=== PATIENT | male | born 1990 | race American Indian/Alaskan Native ===

== ENCOUNTER 2017-12-13 13:24 | Inpatient (IN) | payer OTHER ==
[2017-12-13] MEDS ORDERED: ZOFRAN ODT PO ONE (14:55)
--- NOTE | 2017-12-13 14:58 | Emergency Department Report ---
ED Abdominal Pain HPI - General Chief Complaint: Abdominal Pain Stated Complaint: ABDOMINAL PAIN Time Seen by Provider: 12/13/17 14:51 Source: patient Mode of arrival: Ambulatory Limitations: No Limitations - History of Present Illness Initial Comments: 27-year-old -[place] male comes into ED for complaint of upper abdominal pain that is severe and nausea without vomiting. Patient reports that his pain is greater than 10. Patient admits to nausea no vomiting no diarrhea has not had a bowel movement in 2 days and denies shortness of breathing. He also denies fever no chills. He does admit to taking Tylenol PM ibuprofen 1600 mg every 6 hours 2 he reports taking Xanax that did not help with this pain or sleep. Patient does admit to smoking. He reports he works at night. She has no past medical history currently takes no medications on a daily basis and has no known drug allergies. MD Complaint: abdominal pain -: days(s) (5), This morning (gotten severe.) Location: periumbilical Radiation: none Migration to: no migration Severity: severe Severity scale (0 -10): 10 Quality: sharp Consistency: constant Improves With: nothing Worsens With: nothing Associated Symptoms: nausea, constipation. denies: vomiting, diarrhea, chills, dysuria, melena, hematuria Treatments Prior to Arrival: NSAIDs, other (Tylenol, Xanax) - Related Data Previous Rx's Medication Instructions Recorded Last Taken Type Amoxicillin/Potassium Clav 1 each PO BID #12 tablet 12/17/17 Unknown Rx [Augmentin 500-125 Tablet] Nicotine [Habitrol] 21 mg TD QDAY #30 patch 12/17/17 Unknown Rx Pantoprazole [Protonix TAB] 40 mg PO QDAY #30 tablet 12/17/17 Unknown Rx traMADol [Ultram 50 MG tab] 25 mg PO Q4H PRN #20 tablet 12/17/17 Unknown Rx Allergies Allergy/AdvReac Type Severity Reaction Status Date / Time No Known Allergies Allergy Unverified 12/13/17 13:33 ED Review of Systems ROS: Stated complaint: ABDOMINAL PAIN Other details as noted in HPI ED Past Medical Hx - Past Medical History Previous Medical History?: No - Surgical History Past Surgical History?: No - Social History Smoking Status: Current Every Day Smoker Substance Use Type: Alcohol, Marijuana, Other (benzodiazepine ) - Medications Home Medications: Home Medications Medication Instructions Recorded Confirmed Last Taken Type Amoxicillin/Potassium Clav 1 each PO BID #12 tablet 12/17/17 Unknown Rx [Augmentin 500-125 Tablet] Nicotine [Habitrol] 21 mg TD QDAY #30 patch 12/17/17 Unknown Rx Pantoprazole [Protonix TAB] 40 mg PO QDAY #30 tablet 12/17/17 Unknown Rx traMADol [Ultram 50 MG tab] 25 mg PO Q4H PRN #20 tablet 12/17/17 Unknown Rx ED Physical Exam - General Limitations: No Limitations, Other (nontoxic sitting comfortably) General appearance: alert, in no apparent distress - Head Head exam: Present: atraumatic, normocephalic - Eye Eye exam: Present: normal appearance - ENT ENT exam: Present: mucous membranes moist - Neck Neck exam: Present: normal inspection - Respiratory Respiratory exam: Present: normal lung sounds bilaterally. Absent: respiratory distress - Cardiovascular Cardiovascular Exam: Present: regular rate, normal rhythm. Absent: systolic murmur, diastolic murmur, rubs, gallop - GI/Abdominal GI/Abdominal exam: Present: soft, tenderness (mild tenderness to theUmbilicus area). Absent: distended - Extremities Exam Extremities exam: Present: normal inspection - Back Exam Back exam: Present: normal inspection - Neurological Exam Neurological exam: Present: alert, oriented X3 - Psychiatric Psychiatric exam: Present: normal affect, normal mood ED Course Vital Signs 12/13/17 12/13/17 12/13/17 13:30 15:40 21:45 Temperature 98.6 F 98.3 F Pulse Rate 68 72 81 Respiratory 18 18 18 Rate Blood Pressure 123/74 129/72 130/90 O2 Sat by Pulse 99 99 100 Oximetry 12/13/17 12/13/17 12/13/17 21:50 21:55 22:00 Temperature Pulse Rate 72 65 69 Respiratory 12 12 12 Rate Blood Pressure 134/83 138/90 142/86 O2 Sat by Pulse 100 100 100 Oximetry 12/13/17 12/13/17 12/13/17 22:15 22:20 22:30 Temperature 98.5 F Pulse Rate 63 64 Respiratory 12 12 12 Rate Blood Pressure 135/80 135/80 O2 Sat by Pulse 100 99 Oximetry 12/13/17 12/13/17 12/14/17 22:35 22:57 00:09 Temperature 98.0 F 98.6 F Pulse Rate 78 80 Respiratory 12 20 20 Rate Blood Pressure 132/79 121/70 O2 Sat by Pulse 100 100 Oximetry ED Medical Decision Making - Lab Data Result diagrams: 12/16/17 07:26 12/16/17 07:26 - Medical Decision Making Patient's been evaluated by this provider in fast track. I discussed case with Dr. Leonardo will order a CBC CMP acetaminophen level and lipase CT scan urinalysis urine tox screen. It was noted on CT scan patient has free air versus fluid discussed with Dr. Moeller surgeon at approximately 1654 reports it is coming in to evaluate the patient. Dr. Leonardo is also evaluated the patient as well. Critical care attestation.: If time is entered above; I have spent that time in minutes in the direct care of this critically ill patient, excluding procedure time. ED Disposition Clinical Impression: Duodenal ulcer perforation, Acute abdominal pain Disposition: DC- OP ADMIT IP TO THIS HOSP Is pt being admited?: Yes Does the pt Need Aspirin: No Condition: Stable
[2017-12-13 15:21] LABS: Amphetamine Screen,Urine PRESUMPTIVE NEGATIVE; Benzodiazepines Screen,Urine PRESUMPTIVE NEGATIVE; Cocaine Screen,Urine PRESUMPTIVE NEGATIVE; Methadone Screen,Urine PRESUMPTIVE NEGATIVE; Opiate Screen,Urine PRESUMPTIVE NEGATIVE
[2017-12-13 15:24] LABS: Amorphous Crystals,Urine Few; Bacteria,Urine 1+ /HPF (Negative); Bilirubin,Urine NEG (Negative); Blood,Urine NEG (Negative); Color,Urine Yellow (Yellow); Mucus,Urine 1+ /HPF; Urobilinogen,Urine < 2.0 mg/dL (<2.0)
[2017-12-13 15:28] LABS: Basophils % (Auto) 0.2 % (0.0-1.8); Eosinophils % (Auto) 0.4 % (0.0-4.3); Hematocrit 46.6 % (35.5-45.6); Hemoglobin 15.8 gm/dl (11.8-15.2); Lymphocytes # (Auto) 0.6 K/mm3 (1.2-5.4); Lymphocytes % (Auto) 4.9 % (13.4-35.0); Mean Corpuscular HGB Conc 34 % (32-34); Mean Corpuscular Hemoglobin 31 pg (28-32); Mean Corpuscular Volume 90 fl (84-94); Monocytes # (Auto) 0.6 K/mm3 (0.0-0.8); Monocytes % (Auto) 5.7 % (0.0-7.3); Platelet Count 201 K/mm3 (140-440); Red Blood Count 5.18 M/mm3 (3.65-5.03); Red Cell Distribution Width 14.4 % (13.2-15.2)
[2017-12-13 15:39] LABS: Cannabinoid Screen,Urine PRESUMPTIVE POSITIVE
[2017-12-13 15:43] LABS: Alanine Aminotransferase 13 units/L (7-56); Albumin 4.6 g/dL (3.9-5); BUN/Creatinine Ratio 23; Blood Urea Nitrogen 18 mg/dL (9-20); Calcium 9.4 mg/dL (8.4-10.2); Hemolysis Index 9
[2017-12-13] MEDS ORDERED: ULTRAM ONE (15:47)
[2017-12-13] MEDS ORDERED: ULTRAM PO ONE (15:50)
[2017-12-13] MEDS ORDERED: NACL 0.9% 1000 ML 1,000 ML IV ONE ×2 (16:04→18:08)
--- NOTE | 2017-12-13 16:51 | Cat Scan Report ---
FINAL REPORT EXAM: CT ABDOMEN PELVIS WO CON HISTORY: NV epigastric pain TECHNIQUE: Standard unenhanced CT of the abdomen and pelvis. Coronal and sagittal reconstruction was also performed. PRIORS: None. FINDINGS: There are small bubbles of free air beneath the anterior abdominal wall throughout the abdomen and pelvis and along the margin of the liver. There is also low-density free fluid along the inferior margin of the liver, beneath the abdominal wall, and in the dependent pelvis. No definite site of inflammation is seen. No loculated fluid collection is present. Etiology of the free air is uncertain but perforated viscus is most likely, including perforated ulcer. Otherwise, within the abdomen, the liver, spleen, pancreas, gallbladder, adrenal glands, and kidneys are unremarkable. No evidence for retroperitoneal or pelvic lymphadenopathy is seen. The bowel loops have normal caliber. The appendix is normal. Within the pelvis, the bladder is unremarkable. The prostate is normal. No evidence for mass or lymphadenopathy is seen in the pelvis. Images through the upper abdomen include the lung bases which are expanded and clear. Bony structures show no focal abnormalities and are intact. IMPRESSION: 1. Pneumoperitoneum identified with areas of low-density free fluid scattered throughout the abdomen and pelvis. Findings suggest perforated viscus possibly a perforated ulcer.
[2017-12-13] MEDS ORDERED: ZOFRAN IV ONE (16:53)
[2017-12-13] MEDS ORDERED: DILAUDID IV ONE (16:53)
--- NOTE | 2017-12-13 16:55 | Emergency Department Report ---
Blank Doc - Documentation Documentation: Patient is a 27-year-old Tristanian male who is being evaluated for nausea vomiting epigastric pain. Patient on brief physical exam by me does have an acute abdomen is has guarding present. Patient was seen by my JOYCE. I agree with all documentation on the full H&P. Patient on CT does show evidence of probable perforated gastric ulcer. Atacand R with general surgery has been consult. We are pending his arrival to evaluate the patient for further management and 1654
[2017-12-13] MEDS ORDERED: ZOSYN/NS 4.5GM/100ML 4.5 GM/100 ML VIAL IV SCH (17:00)
--- NOTE | 2017-12-13 18:42 | Consultation ---
History of Present Illness Consult date: 12/13/17 Reason for consult: abdominal pain Requesting physician: ANTONINO FUENTES Chief complaint: abdominal pain - History of present illness History of present illness: 27-year-old otherwise healthy male presents with acute worsening of abdominal pain by 2 days. He reports that 4 days ago he began to have some abdominal discomfort. It acutely worsened yesterday morning for which he took 1600 mg of ibuprofen. The pain completely went away. Unfortunately, the pain returned today and he took another 1600 mg of ibuprofen. However, this time, the pain became even worse. That prompted him to come to the emergency room tonight. He reports nausea but no vomiting. He's been having sweats. His whole abdomen is very tender. The worst part is in the upper portion. He has never had anything like this before. Past History Past Medical History: No medical history Past Surgical History: No surgical history Social history: no significant social history, smoking (marijuana). denies: alcohol abuse, prescription drug abuse, IV drug use Family history: no significant family history Medications and Allergies Allergies Allergy/AdvReac Type Severity Reaction Status Date / Time No Known Allergies Allergy Unverified 12/13/17 13:33 Active Meds: Active Medications Piperacillin Sod/Tazobactam Sod (Zosyn/Ns 4.5gm/100ml) 4.5 gm in 100 mls @ 200 mls/hr IV ONCE GUERITA Sodium Chloride (Nacl 0.9% 1000 Ml) 1,000 mls @ 999 mls/hr IV BOLUS ONE Stop: 12/13/17 19:08 Review of Systems - Constitutional sweats, no fever - Cardiovascular chest pain (lower chest), no palpitations - Respiratory shortness of breath, no cough - Gastrointestinal abdominal pain (very severe in the upper aspect.), nausea, no vomiting, no diarrhea, no constipation, no hematemesis, no BRBPR, no melena, no hematochezia - Muskuloskeletal no low back pain - Integumentary no rash Exam Vital Signs Temp Pulse Resp BP Pulse Ox 98.6 F 68 18 123/74 99 12/13/17 13:30 12/13/17 13:30 12/13/17 13:30 12/13/17 13:30 12/13/17 13:30 - General physical appearance Positive: well developed, well nourished, moderate pain - Eyes Positive: normal occular movement - Respiratory Positive: normal expansion, normal respiratory effort, clear to auscultation - Cardiovascular Rhythm: regular - Extremities Extremities: No edema, normal temperature, normal color - Abdomen Abdomen: Present: tender (especially in epigastric area), bowel sounds hypoactive (none), guarding (involuntary), rigid. Absent: distended, masses, surgical scars - Integumentary no rash, no growths, no abnormal pigmentation - Neurologic Neurologic: alert and oriented to time, place and person, motor strength and sensation are grossly intact - Psychiatric Psychiatric: appropriate mood/affect, intact judgment & insight, cooperative Results - Labs 12/13/17 15:14 12/13/17 15:14 Abnormal lab results 12/13/17 12/13/17 12/13/17 Range/Units 15:14 15:14 15:14 WBC 11.2 H (4.5-11.0) K/mm3 RBC 5.18 H (3.65-5.03) M/mm3 Hgb 15.8 H (11.8-15.2) gm/dl Hct 46.6 H (35.5-45.6) % Lymph % (Auto) 4.9 L (13.4-35.0) % Lymph # 0.6 L (1.2-5.4) K/mm3 Seg Neutrophils % 88.8 H (40.0-70.0) % Seg Neutrophils # 9.9 H (1.8-7.7) K/mm3 Lipase 65 H (13-60) units/L Acetaminophen < 5.0 L (10.0-30.0) ug/mL Diabetes panel 12/13/17 Range/Units 15:14 Sodium 137 (137-145) mmol/L Potassium 4.1 (3.6-5.0) mmol/L Chloride 98.6 (98-107) mmol/L Carbon Dioxide 28 (22-30) mmol/L BUN 18 (9-20) mg/dL Creatinine 0.8 (0.8-1.5) mg/dL Glucose 99 (75-100) mg/dL Calcium 9.4 (8.4-10.2) mg/dL AST 20 (5-40) units/L ALT 13 (7-56) units/L Alkaline Phosphatase 69 (35-129) units/L Total Protein 7.6 (6.3-8.2) g/dL Albumin 4.6 (3.9-5) g/dL Calcium panel 12/13/17 Range/Units 15:14 Calcium 9.4 (8.4-10.2) mg/dL Albumin 4.6 (3.9-5) g/dL Pituitary panel 12/13/17 Range/Units 15:14 Sodium 137 (137-145) mmol/L Potassium 4.1 (3.6-5.0) mmol/L Chloride 98.6 (98-107) mmol/L Carbon Dioxide 28 (22-30) mmol/L BUN 18 (9-20) mg/dL Creatinine 0.8 (0.8-1.5) mg/dL Glucose 99 (75-100) mg/dL Calcium 9.4 (8.4-10.2) mg/dL Adrenal panel 12/13/17 Range/Units 15:14 Sodium 137 (137-145) mmol/L Potassium 4.1 (3.6-5.0) mmol/L Chloride 98.6 (98-107) mmol/L Carbon Dioxide 28 (22-30) mmol/L BUN 18 (9-20) mg/dL Creatinine 0.8 (0.8-1.5) mg/dL Glucose 99 (75-100) mg/dL Calcium 9.4 (8.4-10.2) mg/dL Total Bilirubin 1.00 (0.1-1.2) mg/dL AST 20 (5-40) units/L ALT 13 (7-56) units/L Alkaline Phosphatase 69 (35-129) units/L Total Protein 7.6 (6.3-8.2) g/dL Albumin 4.6 (3.9-5) g/dL - Imaging CT scan - abdomen: report reviewed, image reviewed CT scan - pelvis: report reviewed, image reviewed Assessment and Plan - Patient Problems (1) Acute abdominal pain Current Visit: Yes Status: Acute Plan to address problem: Pt with an acute abdomen on exam. CT scan shows free fluid and free air. Pt in need of urgent exploration. Plan for diagnostic laparoscopy with possible ( exploratory laparotomy. Procedure, risks, benefits, alternatives were discussed. Alternatives included IV antibiotics and observation. I felt the risk was higher with this and I expressed that to him. All questions were answered. Patient consented to procedure. Proceed to operating room tonight. Time=45min (2) Dehydration Current Visit: Yes Status: Acute Plan to address problem: Pt appears dehydrated by clinical exam and labs. I have asked the emergency department to bolus and with an extra liter of fluid. We will continue the resuscitation postoperatively as his clinical parameters dictate.
[2017-12-13] MEDS ORDERED: SODIUM CHLORIDE FLUSH SYRINGE 10 ML IV PRN (19:36)
[2017-12-13] MEDS ORDERED: TYLENOL PO PRN (19:36)
[2017-12-13] MEDS ORDERED: ZOFRAN IV PRN ×2 (19:36→21:57)
--- NOTE | 2017-12-13 19:36 | History and Physical Report ---
History of Present Illness Date of examination: 12/13/17 Date of admission: 12/13/17 Chief complaint: See Dictated H/p in reports History of present illness: See Dictated H/p in reports Past History Past Medical History: No medical history Past Surgical History: No surgical history Social history: no significant social history, smoking (marijuana). denies: alcohol abuse, prescription drug abuse, IV drug use Family history: no significant family history Medications and Allergies Allergies Allergy/AdvReac Type Severity Reaction Status Date / Time No Known Allergies Allergy Unverified 12/13/17 13:33 Active Meds: Active Medications Piperacillin Sod/Tazobactam Sod (Zosyn/Ns 4.5gm/100ml) 4.5 gm in 100 mls @ 200 mls/hr IV ONCE GUERITA Exam - Constitutional Vitals: Temp Pulse Resp BP Pulse Ox 98.6 F 72 18 129/72 99 12/13/17 13:30 12/13/17 15:40 12/13/17 15:40 12/13/17 15:40 12/13/17 15:40 Results - Labs CBC & Chem 7: 12/14/17 05:33 12/14/17 07:01 Labs: Laboratory Last Values WBC 11.2 K/mm3 (4.5-11.0) H 12/13/17 15:14 RBC 5.18 M/mm3 (3.65-5.03) H 12/13/17 15:14 Hgb 15.8 gm/dl (11.8-15.2) H 12/13/17 15:14 Hct 46.6 % (35.5-45.6) H 12/13/17 15:14 MCV 90 fl (84-94) 12/13/17 15:14 MCH 31 pg (28-32) 12/13/17 15:14 MCHC 34 % (32-34) 12/13/17 15:14 RDW 14.4 % (13.2-15.2) 12/13/17 15:14 Plt Count 201 K/mm3 (140-440) 12/13/17 15:14 Lymph % (Auto) 4.9 % (13.4-35.0) L 12/13/17 15:14 Day % (Auto) 5.7 % (0.0-7.3) 12/13/17 15:14 Eos % (Auto) 0.4 % (0.0-4.3) 12/13/17 15:14 Baso % (Auto) 0.2 % (0.0-1.8) 12/13/17 15:14 Lymph # 0.6 K/mm3 (1.2-5.4) L 12/13/17 15:14 Day # 0.6 K/mm3 (0.0-0.8) 12/13/17 15:14 Eos # 0.0 K/mm3 (0.0-0.4) 12/13/17 15:14 Baso # 0.0 K/mm3 (0.0-0.1) 12/13/17 15:14 Seg Neutrophils % 88.8 % (40.0-70.0) H 12/13/17 15:14 Seg Neutrophils # 9.9 K/mm3 (1.8-7.7) H 12/13/17 15:14 Sodium 137 mmol/L (137-145) 12/13/17 15:14 Potassium 4.1 mmol/L (3.6-5.0) 12/13/17 15:14 Chloride 98.6 mmol/L (98-107) 12/13/17 15:14 Carbon Dioxide 28 mmol/L (22-30) 12/13/17 15:14 Anion Gap 15 mmol/L 12/13/17 15:14 BUN 18 mg/dL (9-20) 12/13/17 15:14 Creatinine 0.8 mg/dL (0.8-1.5) 12/13/17 15:14 Estimated GFR > 60 ml/min 12/13/17 15:14 BUN/Creatinine Ratio 23 % 12/13/17 15:14 Glucose 99 mg/dL (75-100) 12/13/17 15:14 Calcium 9.4 mg/dL (8.4-10.2) 12/13/17 15:14 Total Bilirubin 1.00 mg/dL (0.1-1.2) 12/13/17 15:14 AST 20 units/L (5-40) 12/13/17 15:14 ALT 13 units/L (7-56) 12/13/17 15:14 Alkaline Phosphatase 69 units/L (35-129) 12/13/17 15:14 Total Protein 7.6 g/dL (6.3-8.2) 12/13/17 15:14 Albumin 4.6 g/dL (3.9-5) 12/13/17 15:14 Albumin/Globulin Ratio 1.5 % 12/13/17 15:14 Lipase 65 units/L (13-60) H 12/13/17 15:14 Urine Color Yellow (Yellow) 12/13/17 15:04 Urine Turbidity Hazy (Clear) 12/13/17 15:04 Urine pH 5.0 (5.0-7.0) 12/13/17 15:04 Ur Specific Olla 1.029 (1.003-1.030) 12/13/17 15:04 Urine Protein 30 mg/dl mg/dL (Negative) 12/13/17 15:04 Urine Glucose (UA) Neg mg/dL (Negative) 12/13/17 15:04 Urine Ketones Tr mg/dL (Negative) 12/13/17 15:04 Urine Blood Neg (Negative) 12/13/17 15:04 Urine Nitrite Neg (Negative) 12/13/17 15:04 Urine Bilirubin Neg (Negative) 12/13/17 15:04 Urine Urobilinogen < 2.0 mg/dL (<2.0) 12/13/17 15:04 Ur Leukocyte Esterase Neg (Negative) 12/13/17 15:04 Urine WBC (Auto) 6.0 /HPF (0.0-6.0) 12/13/17 15:04 Urine RBC (Auto) 3.0 /HPF (0.0-6.0) 12/13/17 15:04 U Epithel Cells (Auto) < 1.0 /HPF (0-13.0) 12/13/17 15:04 Urine Bacteria (Auto) 1+ /HPF (Negative) 12/13/17 15:04 Amorphous Crystals Few 12/13/17 15:04 Urine Mucus 1+ /HPF 12/13/17 15:04 Urine Opiates Screen Presumptive negative 12/13/17 15:04 Urine Methadone Screen Presumptive negative 12/13/17 15:04 Acetaminophen < 5.0 ug/mL (10.0-30.0) L 12/13/17 15:14 Ur Barbiturates Screen Presumptive negative 12/13/17 15:04 Ur Phencyclidine Scrn Presumptive negative 12/13/17 15:04 Ur Amphetamines Screen Presumptive negative 12/13/17 15:04 U Benzodiazepines Scrn Presumptive negative 12/13/17 15:04 Urine Cocaine Screen Presumptive negative 12/13/17 15:04 U Marijuana (THC) Screen Presumptive positive 12/13/17 15:04 Drugs of Abuse Note Disclamer 12/13/17 15:04
[2017-12-13] MEDS ORDERED: DIPRIVAN 10 MG/ML IV ONE (19:55)
[2017-12-13] MEDS ORDERED: ZEMURON IV ONE (19:56)
[2017-12-13] MEDS ORDERED: XYLOCAINE MPF 2% ONE (19:56)
[2017-12-13] MEDS ORDERED: PROTONIX 80 MG in NACL 0.9% 100 ML IV SCH (20:00)
[2017-12-13] MEDS ORDERED: D5NS 1,000 ML IV SCH (20:00)
[2017-12-13] MEDS ORDERED: LACTATED RINGERS 1,000 ML ONE ×2 (20:18→21:09)
[2017-12-13] MEDS ORDERED: SUBLIMAZE ONE (20:19)
[2017-12-13] MEDS ORDERED: MARCAINE 0.5% INFILTRATI ONE (20:25)
[2017-12-13] MEDS ORDERED: XYLOCAINE 1% 20 mL ONE (20:25)
[2017-12-13] MEDS ORDERED: MARCAINE 0.5% 30 ML INFILTRATI ONE (20:25)
[2017-12-13] MEDS ORDERED: XYLOCAINE 1% 20 mL INFILTRATI ONE (20:25)
[2017-12-13] MEDS ORDERED: ZOFRAN ONE (21:20)
[2017-12-13] MEDS ORDERED: DILAUDID ONE ×2 (21:27→22:21)
[2017-12-13] MEDS ORDERED: DILAUDID IV PRN (21:57)
[2017-12-13] MEDS ORDERED: SUBLIMAZE IV PRN (21:57)
--- NOTE | 2017-12-13 21:58 | Post Operative Note ---
Date of procedure: 12/13/17 (Dictation#[id number]) Pre-op diagnosis: acute abdomen Post-op diagnosis: other (Duodenal perforation) Findings: 7-8mm anterior perforation in 1st part of duodenum. Extensive contamination in abdominal cavity. Procedure: diagnostic laparoscopy suture closure of duodenal perforation Omental patch peritoneal lavage Anesthesia: MICHELLE Surgeon: IRIS WINSTON Estimated blood loss: other (<50cc) Pathology: none Condition: stable Disposition: PACU
--- NOTE | 2017-12-13 21:58 | Anesthesia Consultation ---
Anesthesia Consult and Med Hx Date of service: 12/13/17 - Airway Anesthetic Teeth Evaluation: Good ROM Head & Neck: Adequate Mental/Hyoid Distance: Adequate Mallampati Class: Class II Intubation Access Assessment: Good - Pulmonary Exam CTA: Yes - Cardiac Exam Cardiac Exam: RRR - Pre-Operative Health Status ASA Pre-Surgery Classification: ASA2, Emergency Proposed Anesthetic Plan: General
--- NOTE | 2017-12-13 21:59 | Anesthesia Day of Surgery ---
Anesthesia Day of Surgery - Day of Surgery Patient Examined: Yes Patient H&P Reviewed: Yes Patient is NPO: Yes
--- NOTE | 2017-12-13 21:59 | Post Anesthesia Evaluation ---
- Post Anesthesia Evaluation Patient Participated: Yes Airway Patent: Yes Stable Respiratory Function: Yes Nausea/Vomiting: No Temp > 96.8F: Yes Pain Manageable: Yes Adequeate Hydration: Yes Anesthesia Complications: No
[2017-12-13] MEDS ORDERED: HEPARIN SUB-Q SCH (22:00)
--- NOTE | 2017-12-13 22:26 | Operative Report ---
PREOPERATIVE DIAGNOSIS: Acute abdomen. POSTOPERATIVE DIAGNOSIS: Duodenal perforation with extensive contamination in the abdominal cavity. PROCEDURE: 1. Diagnostic laparoscopy. 2. Closure of duodenal perforation. 3. Omental Deandre patch. 4. Peritoneal lavagel. ATTENDING PHYSICIAN: Reanna Moeller MD ANESTHESIA: General. ESTIMATED BLOOD LOSS: Less than 50 mL. FLUIDS: 1200 mL. FINDINGS: Approximately 7-8 mm anterior perforation on the anterior duodenum with extensive contamination in the peritoneal cavity. There was bilious fluid in the pelvis and fibrinous tissue throughout the abdominal cavity. SPECIMEN: None. DRAINS: NG tube and Park catheter. COMPLICATIONS: None. DISPOSITION: Stable transport to Recovery Room. INDICATIONS: This is a 27-year-old male who originally began having abdominal pain 4 days ago and then acutely worsened over the last 24-36 hours. He presented to the Emergency Department, was found to have free air and free fluid in the abdominal cavity. He had an acute abdomen on exam. He was assessed to be in need for diagnostic laparoscopy. Procedure, risks, benefits were explained to the patient. Risks included but were not limited to infection, bleeding, pain, injury to surrounding structures, possible need for open surgery, possible need for further procedures in the future. The patient understood and consented. OPERATIVE NOTE: The patient was brought to the operating room and placed on table in supine position. After adequate general anesthesia was established, the patient was prepped and draped in the usual sterile fashion. NG tube was placed. Park catheter was placed. Antibiotics had been given in the Emergency Department and SCDs were in place. Time-out was called. I began by placing a Veress needle in the left upper quadrant. I was able to insufflate the abdomen on the first attempt. A 5 mm port was placed in the right side of the abdomen along the semilunar line. I entered the peritoneal cavity safely. I could see that there was no injury to the underlying structures where the Veress needle had been placed. This was removed. We examined the abdominal cavity. There was extensive contamination throughout the liver, gallbladder, stomach were all adhered together. There was bilious fluid in the pelvis and fibrinous tissue throughout. I began by placing another 5 mm port on the left side of the patient's abdomen just below the level of the umbilicus along the semilunar line. I then began to do a peritoneal lavaged, try to gently dissect away some of the adhered tissue and in doing so, once we had cleaned up some of the contamination and I gently the area in the epigastric area. I identified the duodenal perforation. We could clearly see duodenal fluid coming out. There was no active bleeding. We suctioned up that area. I then placed a 12 mm port in the supraumbilical position under direct vision. Please note the other 5-mm port was placed under direct vision as well. I then placed a 10 mm camera through that port and we proceeded to gently dissect out that area. Once I had a good enough exposure, I then closed the defect laparoscopically with 3-0 silk sutures. Two sutures were required to close the defect. I tied the knot intracorporeally. Once that was done, we then pressed on that area. We saw no drainage coming out there. I felt we had a good closure. As a precaution, I placed a Deandre patch over that area and secured it with a 3-0 silk. Two sutures were placed. When we placed the patient in reverse Trendelenburg, the omentum appeared to lie very well. There was no tension on it. When I put it up there, it seemed to lie very well. We then thoroughly washed out the abdomen. I had elevated the omentum over the liver edge in the beginning of the case to make sure there were no collections or any other perforation underneath and there were none. Everything, I thoroughly suctioned out at the end of the case. When we suctioned out the pelvis, the fluid was coming back clear. I felt we had done a good job in both left and right upper quadrant and in the pelvis. Everything else looked pretty good. Once we felt we had good hemostasis and there were no other issues, we then removed both 5 mm ports. We checked for any bleeding, there was none. Then, we removed the 12 mm port and decompressed the abdomen. I injected a total of 40 mL of 0.5% Marcaine and 1% lidocaine 50:50 mix into the incisions. I closed the fascia at the supraumbilical port site with a [id number] Vicryl stitch, taking care to elevate the fascia, so as not to catch the underlying bowel. The skin was closed with interrupted 4-0 Monocryl subcuticular stitch. The skin was cleaned and dried. Dressings were placed. The patient tolerated the procedure well. There were no complications. All counts were correct at the end of the case. In recovery, the patient reported that he was feeling much better. I gave a full report to his emi JOB# [id number] HELGA/EDNA
[2017-12-13] MEDS: SODIUM CHLORIDE FLUSH SYRINGE 10 ML IV SCH (23:51)
[2017-12-13] MEDS: ZOSYN/NS 4.5GM/100ML 4.5 GM/100 ML VIAL IV SCH (23:54)
[2017-12-14] MEDS: MORPHINE IV PRN ×3 (03:44→20:59)
[2017-12-14] MEDS: ZOSYN/NS 4.5GM/100ML 4.5 GM/100 ML VIAL IV SCH ×3 (05:49→21:00)
[2017-12-14 05:58] LABS: Basophils % (Auto) 0.1 % (0.0-1.8); Eosinophils % (Auto) 0.1 % (0.0-4.3); Hematocrit 36.5 % (35.5-45.6); Hemoglobin 12.4 gm/dl (11.8-15.2); Lymphocytes # (Auto) 1.3 K/mm3 (1.2-5.4); Lymphocytes % (Auto) 7.2 % (13.4-35.0); Mean Corpuscular HGB Conc 34 % (32-34); Mean Corpuscular Hemoglobin 31 pg (28-32); Mean Corpuscular Volume 90 fl (84-94); Monocytes # (Auto) 1.2 K/mm3 (0.0-0.8); Monocytes % (Auto) 6.5 % (0.0-7.3); Platelet Count 156 K/mm3 (140-440); Red Blood Count 4.04 M/mm3 (3.65-5.03); Red Cell Distribution Width 14.3 % (13.2-15.2)
[2017-12-14 06:22] LABS: Alanine Aminotransferase 10 units/L (7-56); Albumin 2.7 g/dL (3.9-5); BUN/Creatinine Ratio 13; Blood Urea Nitrogen 9 mg/dL (9-20); Calcium 6.9 mg/dL (8.4-10.2); Hemolysis Index 6
--- NOTE | 2017-12-14 07:46 | Event Note ---
Date: 12/13/17 See dictated H/p in reports
--- NOTE | 2017-12-14 08:15 | History and Physical Report ---
CHIEF COMPLAINT: Severe abdominal pain since morning. HISTORY OF PRESENT ILLNESS: A 27-year-old with no significant past medical history, comes in for severe abdominal pain since morning associated with severe nausea, but no vomiting. Pain is about 10 on a scale of 1-10. The patient took ibuprofen after the pain started. He took 2 Ibuprofens of 800 mg after the pain started. No Goody powders, no BC powders or aspirin before the abdominal pain started. The patient has not been taking any medications in the past few days or months. Pain is 10/10. No fever, no chills. Pain is all over the abdomen. No diaphoresis. No shortness of breath. PAST MEDICAL HISTORY: None. PAST SURGICAL HISTORY: None. SOCIAL HISTORY: Smokes over a pack a day. Alcohol and marijuana on a regular basis. FAMILY HISTORY: Hypertension. REVIEW OF SYSTEMS: Significant for severe abdominal pain, 10/10, associated with nausea, but no vomiting. Pain is generalized over the abdomen. Otherwise, review of systems is essentially negative. A 14-point review of systems done. PHYSICAL EXAMINATION: GENERAL: Young male in slight distress secondary to pain. VITAL SIGNS: Blood pressure is 132/79, temperature 98, pulse is 78, respirations are 20. HEENT: Unremarkable. Pupils equal, reactive. NECK: Supple, no lymphadenopathy, no thyromegaly. LUNGS: Clear to auscultation and percussion. Good air entry. CARDIOVASCULAR: S1, S2 heard. No gallop, no murmur, no rub. Apical impulse in left fifth intercostal space and midclavicular line. ABDOMEN: Guarding present. Rigidity present. Bowel sounds are present. The patient is not letting me touch the abdomen. Severe tenderness present. EXTREMITIES: Good pedal pulses. No pedal edema. CENTRAL NERVOUS SYSTEM: Alert and oriented x 4, nonfocal exam. LABORATORY DATA: White count is 11,200, hemoglobin is 15.2, hematocrit is 46.6, platelet count is 201,000. Electrolytes are normal. Urine normal. Drug screen positive for marijuana. CT of the abdomen shows pneumoperitoneum identified with areas of low density free fluid scattered throughout the abdomen and pelvis. Findings suggest perforated viscus, possibly a perforated ulcer. ASSESSMENT AND PLAN: 1. Acute abdominal pain secondary to perforation of possibly duodenum. The patient does not have any history of peptic ulcer disease, but will start him on IV Protonix, IV fluids and IV antibiotics in the form of Zosyn to cover broad spectrum coverage. Surgery consulted. 2. Perforated viscus, probably from the duodenum secondary to duodenal ulcer. The patient does not have much history of peptic ulcer disease. We will initiate him on IV Protonix. Surgery consulted. 3. Sepsis, impending. We will start him on IV Zosyn and IV Flagyl. 4. Deep venous thrombosis prophylaxis, heparin 5000 q.12h 5. Nicotine dependence. Nicoderm patch initiated. The patient counseled. JOB# [id number] KYM/EDNA
--- NOTE | 2017-12-14 09:07 | Progress Note ---
Assessment and Plan - Patient Problems (1) Duodenal ulcer perforation Current Visit: Yes Status: Acute Plan to address problem: Pt stable. s/p dx lap, suture closure of duodenal perforation, Omental patch, peritoneal lavage - 12/13/17 - POD#1. Patient pulled out his NGT last night. I made it very clear to him that he has increased risk for complications. The NG tube was critical for decompressing his stomach and allowing the repair to heal. If he leaks, we will have no choice but to do an extensive open surgery. I've made this very clear to them. I've encouraged him to ambulate and to do incentive spirometry. His risk of treatment failure has increased significantly. - Keep NPO for now - Change fluid to maintenance. - Cont Abx until WBC normal and afebrile for 48hrs. I think the current leukocytosis is reactive in nature. - Ambulate - IS - If clinical ok tomorrow, will do UGI to assess for leaks from repair site - monitor closely (2) Dehydration Current Visit: Yes Status: Resolved Plan to address problem: Change IVF to maintenance Subjective Date of service: 12/14/17 Patient Reports: Positive: feels better, pain is less (minimal now), no flatus, no bowel movement, other (No burping. He pulled out NGT last night because it was choking him. ). Negative: nausea, vomiting Objective Vital Signs - 12hr 12/13/17 12/13/17 12/13/17 21:45 21:50 21:55 Temperature 98.3 F Pulse Rate 81 72 65 Respiratory 18 12 12 Rate Blood Pressure 130/90 134/83 138/90 Blood Pressure [Left] O2 Sat by Pulse 100 100 100 Oximetry 12/13/17 12/13/17 12/13/17 22:00 22:15 22:20 Temperature Pulse Rate 69 63 Respiratory 12 12 12 Rate Blood Pressure 142/86 135/80 Blood Pressure [Left] O2 Sat by Pulse 100 100 Oximetry 12/13/17 12/13/17 12/13/17 22:30 22:35 22:57 Temperature 98.5 F 98.0 F Pulse Rate 64 78 Respiratory 12 12 20 Rate Blood Pressure 135/80 132/79 Blood Pressure [Left] O2 Sat by Pulse 99 100 Oximetry 12/14/17 12/14/17 12/14/17 00:09 05:06 07:20 Temperature 98.6 F 99.2 F 99.0 F Pulse Rate 80 65 72 Respiratory 20 18 20 Rate Blood Pressure 121/70 115/47 Blood Pressure 110/45 [Left] O2 Sat by Pulse 100 98 98 Oximetry - General physical appearance no distress, no pain, other (Smiling. Looks good. ) - Eyes normal occular movement - Respiratory normal expansion, normal respiratory effort - Abdomen soft, tender (minimal incisional tenderness. ), bowel sounds hypoactive, not distended, not guarding, not rigid, wound (Incisions C/D/I) - Integumentary no rash, no growths, no abnormal pigmentation - Psychiatric oriented to time, oriented to person, oriented to place, speech is normal, memory intact - Labs 12/14/17 05:33 12/14/17 07:01 Diabetes panel 12/13/17 12/14/17 12/14/17 Range/Units 15:14 05:33 07:01 Sodium 137 139 (137-145) mmol/L Potassium 4.1 3.5 L (3.6-5.0) mmol/L Chloride 98.6 107.1 H (98-107) mmol/L Carbon Dioxide 28 23 (22-30) mmol/L BUN 18 9 (9-20) mg/dL Creatinine 0.8 0.7 L (0.8-1.5) mg/dL Glucose 99 517 H* 105 H (75-100) mg/dL Calcium 9.4 6.9 L D (8.4-10.2) mg/dL AST 20 16 (5-40) units/L ALT 13 10 (7-56) units/L Alkaline Phosphatase 69 45 (35-129) units/L Total Protein 7.6 4.8 L D (6.3-8.2) g/dL Albumin 4.6 2.7 L (3.9-5) g/dL Calcium panel 12/13/17 12/14/17 Range/Units 15:14 05:33 Calcium 9.4 6.9 L D (8.4-10.2) mg/dL Albumin 4.6 2.7 L (3.9-5) g/dL Pituitary panel 12/13/17 12/14/17 12/14/17 Range/Units 15:14 05:33 07:01 Sodium 137 139 (137-145) mmol/L Potassium 4.1 3.5 L (3.6-5.0) mmol/L Chloride 98.6 107.1 H (98-107) mmol/L Carbon Dioxide 28 23 (22-30) mmol/L BUN 18 9 (9-20) mg/dL Creatinine 0.8 0.7 L (0.8-1.5) mg/dL Glucose 99 517 H* 105 H (75-100) mg/dL Calcium 9.4 6.9 L D (8.4-10.2) mg/dL Adrenal panel 12/13/17 12/14/17 12/14/17 Range/Units 15:14 05:33 07:01 Sodium 137 139 (137-145) mmol/L Potassium 4.1 3.5 L (3.6-5.0) mmol/L Chloride 98.6 107.1 H (98-107) mmol/L Carbon Dioxide 28 23 (22-30) mmol/L BUN 18 9 (9-20) mg/dL Creatinine 0.8 0.7 L (0.8-1.5) mg/dL Glucose 99 517 H* 105 H (75-100) mg/dL Calcium 9.4 6.9 L D (8.4-10.2) mg/dL Total Bilirubin 1.00 0.80 (0.1-1.2) mg/dL AST 20 16 (5-40) units/L ALT 13 10 (7-56) units/L Alkaline Phosphatase 69 45 (35-129) units/L Total Protein 7.6 4.8 L D (6.3-8.2) g/dL Albumin 4.6 2.7 L (3.9-5) g/dL
[2017-12-14] MEDS: HABITROL TD SCH (09:36)
[2017-12-14] MEDS: SODIUM CHLORIDE FLUSH SYRINGE 10 ML IV SCH ×2 (09:38→21:00)
[2017-12-14] MEDS: D5W/0.45% NACL/KCL 20 MEQ 20 MEQ/1,000 ML BAG IV SCH (09:38)
--- NOTE | 2017-12-14 12:53 | Consultation ---
History of Present Illness Consult date: 12/14/17 Requesting physician: JASON BURGOS Consult reason: other (abnormal ECG ) History of present illness: The pt is a 27 YO male with past medical history significant for tobacco use, marijuana use, opiate abuse, benzo abuse. He is previously unknown to our practice. He presented yesterday with complaints of abdominal pain and was subsequently diagnosed with duodenal perforation and underwent dx lap and suture closure of duodenal perforation and peritoneal lavage yesterday evening. Pt was noted to have abnormal ECG and thus cardiology has been consulted. ECG shows NSR with probable LVH and repolarization abnormalities with incomplete RBBB. Pt denies any prior cardiac issues or cardiac evaluation. Pt does admit that 3 days prior to admission, he experienced a bout of left-sided aching chest pain while he was driving. The pain was associated with some diaphoresis. Pt denies any SOB, palpitations, n/v, dizziness or syncope. Pt denies any c/o chest pain on evaluation. Past History Past Medical History: No medical history Past Surgical History: No surgical history Social history: no significant social history, smoking (marijuana), alcohol abuse (social ), prescription drug abuse (opiates and benzos). denies: IV drug use Family history: no significant family history Medications and Allergies Allergies Allergy/AdvReac Type Severity Reaction Status Date / Time No Known Allergies Allergy Unverified 12/13/17 13:33 Active Meds: Active Medications Acetaminophen (Tylenol) 650 mg PO Q4H PRN PRN Reason: Pain MILD(1-3)/Fever >100.5/B[place]ARD Enoxaparin Sodium (Lovenox) 40 mg SUB-Q QDAY@2200 [facility]ITA Piperacillin Sod/Tazobactam Sod (Zosyn/Ns 4.5gm/100ml) 4.5 gm in 100 mls @ 200 mls/hr IV Q8HR [facility]ERITA; Protocol Last Admin: 12/14/17 05:49 Dose: 200 mls/hr Pantoprazole Sodium 80 mg/ (Sodium Chloride) 100 mls @ 10 mls/hr IV DIRECT [facility]ER[facility] Potassium Chloride/Dextrose/Sod Cl (D5w/0.45% Nacl/Kcl 20 Meq) 20 meq in 1,000 mls @ 75 mls/hr IV DIRECT GUERITA Last Admin: 12/14/17 09:38 Dose: 75 mls/hr Morphine Sulfate (Morphine) 4 mg IV Q4H PRN PRN Reason: Pain, Moderate (4-6) Last Admin: 12/14/17 03:44 Dose: 4 mg Nicotine (Habitrol) 21 mg TD QDAY [facility] Last Admin: 12/14/17 09:36 Dose: 21 mg Ondansetron HCl (Zofran) 4 mg IV Q8H PRN PRN Reason: Nausea And Vomiting Sodium Chloride (Sodium Chloride Flush Syringe 10 Ml) 10 ml IV BID [facility] Last Admin: 12/14/17 09:38 Dose: Not Given Sodium Chloride (Sodium Chloride Flush Syringe 10 Ml) 10 ml IV PRN PRN PRN Reason: LINE FLUSH Review of Systems Constitutional: no weight loss, no weight gain, no fever, no chills Ears, nose, mouth and throat: no ear pain, no nose pain, no sinus pressure, no sinus pain Cardiovascular: chest pain, no orthopnea, no palpitations, no rapid/irregular heart beat, no edema, no syncope, no lightheadedness, no shortness of breath, no dyspnea on exertion, no paroxysmal nocturnal dyspnea, no high blood pressure , no leg edema, no decreased exercise tolerance Respiratory: no cough, no congestion, no wheezing, no pain on inspiration Gastrointestinal: abdominal pain, no nausea, no vomiting, no diarrhea, no constipation Genitourinary Male: no dysuria, no hematuria, no flank pain, no discharge, no urinary frequency, no urinary hesitancy Musculoskeletal: no neck stiffness, no neck pain, no shooting arm pain, no arm numbness/tingling, no low back pain, no shooting leg pain, no leg numbness/ tingling, no redness of joints Integumentary: no rash, no pruritis, no redness, no sores, no wounds Neurological: no head injury, no paralysis, no weakness, no parathesias, no numbness, no tingling, no seizures, no syncope Psychiatric: no anxiety Endocrine: no cold intolerance, no heat intolerance Hematologic/Lymphatic: no easy bruising, no easy bleeding, no lymphadenopathy Allergic/Immunologic: no urticaria, no wheezing, no persistent infections Physical Examination Vital Signs Temp Pulse Resp BP Pulse Ox 98.6 F 68 18 123/74 99 12/13/17 13:30 12/13/17 13:30 12/13/17 13:30 12/13/17 13:30 12/13/17 13:30 General appearance: no acute distress HEENT: Positive: PERRL, Normocephaly, Mucus Membranes Moist Neck: Positive: neck supple, trachea midline Cardiac: Positive: Reg Rate and Rhythm, S1/S2 Lungs: Positive: clear to auscultation Neuro: Positive: Grossly Intact, Cranial Nerve 2-12 Intact Abdomen: Positive: Soft. Negative: Tender Skin: Positive: Clear, Other (lap surgical sites). Negative: Rash Musculoskeletal: No Fluid Collection, No Pain, Normal Range of Motion Extremities: Absent: edema Results 12/14/17 05:33 12/14/17 07:01 Cardiac Enzymes 12/13/17 12/14/17 Range/Units 15:14 05:33 AST 20 16 (5-40) units/L CBC 12/13/17 12/14/17 Range/Units 15:14 05:33 WBC 11.2 H 17.6 H (4.5-11.0) K/mm3 RBC 5.18 H 4.04 (3.65-5.03) M/mm3 Hgb 15.8 H 12.4 D (11.8-15.2) gm/dl Hct 46.6 H 36.5 D (35.5-45.6) % Plt Count 201 156 (140-440) K/mm3 Lymph # 0.6 L 1.3 (1.2-5.4) K/mm3 [place] # 0.6 1.2 H (0.0-0.8) K/mm3 Eos # 0.0 0.0 (0.0-0.4) K/mm3 Baso # 0.0 0.0 (0.0-0.1) K/mm3 Comprehensive Metabolic Panel 12/13/17 12/14/17 12/14/17 Range/Units 15:14 05:33 07:01 Sodium 137 139 (137-145) mmol/L Potassium 4.1 3.5 L (3.6-5.0) mmol/L Chloride 98.6 107.1 H (98-107) mmol/L Carbon Dioxide 28 23 (22-30) mmol/L BUN 18 9 (9-20) mg/dL Creatinine 0.8 0.7 L (0.8-1.5) mg/dL Glucose 99 517 H* 105 H (75-100) mg/dL Calcium 9.4 6.9 L D (8.4-10.2) mg/dL AST 20 16 (5-40) units/L ALT 13 10 (7-56) units/L Alkaline Phosphatase 69 45 (35-129) units/L Total Protein 7.6 4.8 L D (6.3-8.2) g/dL Albumin 4.6 2.7 L (3.9-5) g/dL - Imaging and Cardiology Echo: pending EKG: report reviewed, image reviewed EKG interpretations - Telemetry EKG Rhythm: Sinus Rhythm - EKG Sinus rhythms and dysrhythmias: sinus rhythm AV and intraventricular conduction: right bundle branch block (incomplete) Chamber hypertrophy or enlargement: left ventricular hypertro Repolarization changes or abnormalities: repolarization abn secondary to ventricular hypertrophy Assessment and Plan Assessment: Abnormal ECG- NSR with probable LVH and repolarization abnormalities with incomplete RBBB Chest pain, atypical - currently resolved Duodenonal perforation s/p repair 12/13/2017 Tobacco use / marijuana use / opiate & benzo abuse - cessation encouraged Plan: Obtain echo. Obtain Rissa. Repeat ECG in AM. Cont telemetry. Assessment and plan reviewed with pt and pt's significant other at bedside. The patient has been seen in conjunction with Dr. Reid who agrees with the assessment and plan of care.
--- NOTE | 2017-12-14 15:58 | Progress Note ---
Assessment and Plan Assessment and plan: bowel perforation; s/p dx lap, suture closure of duodenal perforation, Omental patch, peritoneal lavage - 12/13/17 -Keep nothing by mouth for now. Patient pulled out his NG tube. We'll go for upper GI series tomorrow, and if there is no leakage , may start diet then sepsis due to peritonitis, continue IV antibiotics nicotine dependence, nicotine patch dvt ppx History Interval history: Review of systems Constitutional: No fevers, no malaise, no joint pains CVS: No chest pain, no orthopnea, no dyspnea on exertion, no pedal edema GI: No abdominal pain, no diarrhea, no vomiting, no constipation Respiratory: No shortness of breath, no wheezing, no coughing Hospitalist Physical - Physical exam Narrative exam: General.: Appears well, no distress, nontoxic HEENT: Moist mucous membranes, extraocular muscles intact, no lymphadenopathy Neck: supple Cardiac: S1-S2 heard Lungs: clear to auscultation bilaterally Abdomen: soft , tender in the hypogastrium, nondistended, bowel sounds positive Extremities: no edema clubbing or cyanosis Skin: no rash or lesions Neurologic: no gross focal deficits Psych: appropriate behavior, appropriate mood, corporative, judgment intact - Constitutional Vitals: Temp Pulse Resp BP Pulse Ox 99.0 F 62 18 110/45 100 12/14/17 07:20 12/14/17 07:20 12/14/17 14:43 12/14/17 07:20 12/14/17 07:20 General appearance: Present: no acute distress Results - Labs CBC & Chem 7: 12/16/17 07:26 12/16/17 07:26 Labs: Laboratory Last Values WBC 17.6 K/mm3 (4.5-11.0) H 12/14/17 05:33 RBC 4.04 M/mm3 (3.65-5.03) 12/14/17 05:33 Hgb 12.4 gm/dl (11.8-15.2) D 12/14/17 05:33 Hct 36.5 % (35.5-45.6) D 12/14/17 05:33 MCV 90 fl (84-94) 12/14/17 05:33 MCH 31 pg (28-32) 12/14/17 05:33 MCHC 34 % (32-34) 12/14/17 05:33 RDW 14.3 % (13.2-15.2) 12/14/17 05:33 Plt Count 156 K/mm3 (140-440) 12/14/17 05:33 Lymph % (Auto) 7.2 % (13.4-35.0) L 12/14/17 05:33 [place] % (Auto) 6.5 % (0.0-7.3) 12/14/17 05:33 Eos % (Auto) 0.1 % (0.0-4.3) 12/14/17 05:33 Baso % (Auto) 0.1 % (0.0-1.8) 12/14/17 05:33 Lymph # 1.3 K/mm3 (1.2-5.4) 12/14/17 05:33 [place] # 1.2 K/mm3 (0.0-0.8) H 12/14/17 05:33 Eos # 0.0 K/mm3 (0.0-0.4) 12/14/17 05:33 Baso # 0.0 K/mm3 (0.0-0.1) 12/14/17 05:33 Seg Neutrophils % 86.1 % (40.0-70.0) H 12/14/17 05:33 Seg Neutrophils # 15.2 K/mm3 (1.8-7.7) H 12/14/17 05:33 Sodium 139 mmol/L (137-145) 12/14/17 05:33 Potassium 3.5 mmol/L (3.6-5.0) L 12/14/17 05:33 Chloride 107.1 mmol/L (98-107) H 12/14/17 05:33 Carbon Dioxide 23 mmol/L (22-30) 12/14/17 05:33 Anion Gap 12 mmol/L 12/14/17 05:33 BUN 9 mg/dL (9-20) 12/14/17 05:33 Creatinine 0.7 mg/dL (0.8-1.5) L 12/14/17 05:33 Estimated GFR > 60 ml/min 12/14/17 05:33 BUN/Creatinine Ratio 13 % 12/14/17 05:33 Glucose 105 mg/dL (75-100) H 12/14/17 07:01 POC Glucose 87 (70-105) 12/14/17 06:43 Calcium 6.9 mg/dL (8.4-10.2) L D 12/14/17 05:33 Total Bilirubin 0.80 mg/dL (0.1-1.2) 12/14/17 05:33 AST 16 units/L (5-40) 12/14/17 05:33 ALT 10 units/L (7-56) 12/14/17 05:33 Alkaline Phosphatase 45 units/L (35-129) 12/14/17 05:33 Total Protein 4.8 g/dL (6.3-8.2) L D 12/14/17 05:33 Albumin 2.7 g/dL (3.9-5) L 12/14/17 05:33 Albumin/Globulin Ratio 1.3 % 12/14/17 05:33 Lipase 65 units/L (13-60) H 12/13/17 15:14 Urine Color Yellow (Yellow) 12/13/17 15:04 Urine Turbidity Hazy (Clear) 12/13/17 15:04 Urine pH 5.0 (5.0-7.0) 12/13/17 15:04 Ur Specific [place] 1.029 (1.003-1.030) 12/13/17 15:04 Urine Protein 30 mg/dl mg/dL (Negative) 12/13/17 15:04 Urine Glucose (UA) Neg mg/dL (Negative) 12/13/17 15:04 Urine Ketones Tr mg/dL (Negative) 12/13/17 15:04 Urine Blood Neg (Negative) 12/13/17 15:04 Urine Nitrite Neg (Negative) 12/13/17 15:04 Urine Bilirubin Neg (Negative) 12/13/17 15:04 Urine Urobilinogen < 2.0 mg/dL (<2.0) 12/13/17 15:04 Ur Leukocyte Esterase Neg (Negative) 12/13/17 15:04 Urine WBC (Auto) 6.0 /HPF (0.0-6.0) 12/13/17 15:04 Urine RBC (Auto) 3.0 /HPF (0.0-6.0) 12/13/17 15:04 U Epithel Cells (Auto) < 1.0 /HPF (0-13.0) 12/13/17 15:04 Urine Bacteria (Auto) 1+ /HPF (Negative) 12/13/17 15:04 Amorphous Crystals Few 12/13/17 15:04 Urine Mucus 1+ /HPF 12/13/17 15:04 Urine Opiates Screen Presumptive negative 12/13/17 15:04 Urine Methadone Screen Presumptive negative 12/13/17 15:04 Acetaminophen < 5.0 ug/mL (10.0-30.0) L 12/13/17 15:14 Ur Barbiturates Screen Presumptive negative 12/13/17 15:04 Ur Phencyclidine Scrn Presumptive negative 12/13/17 15:04 Ur Amphetamines Screen Presumptive negative 12/13/17 15:04 U Benzodiazepines Scrn Presumptive negative 12/13/17 15:04 Urine Cocaine Screen Presumptive negative 12/13/17 15:04 U Marijuana (THC) Screen Presumptive positive 12/13/17 15:04 Drugs of Abuse Note Disclamer 12/13/17 15:04
[2017-12-14 17:14] LABS: Creatine Kinase MB 1.2 ng/mL (0.0-4.0)
[2017-12-14] MEDS: LOVENOX SUB-Q SCH (21:00)
[2017-12-15] MEDS: D5W/0.45% NACL/KCL 20 MEQ 20 MEQ/1,000 ML BAG IV SCH ×2 (00:05→15:19)
[2017-12-15] MEDS: MORPHINE IV PRN ×5 (05:53→23:00)
[2017-12-15] MEDS: ZOSYN/NS 4.5GM/100ML 4.5 GM/100 ML VIAL IV SCH ×3 (06:43→21:39)
--- NOTE | 2017-12-15 07:44 | Progress Note ---
Assessment and Plan Assessment and plan: bowel perforation; s/p dx lap, suture closure of duodenal perforation, Omental patch, peritoneal lavage - 12/13/17 -Upper GI series did not show any leakages. Has been started on clear liquid diet sepsis due to peritonitis, continue IV antibiotics nicotine dependence, nicotine patch dvt ppx History Interval history: Review of systems Constitutional: No fevers, no malaise, no joint pains CVS: No chest pain, no orthopnea, no dyspnea on exertion, no pedal edema GI: No abdominal pain, no diarrhea, no vomiting, no constipation Respiratory: No shortness of breath, no wheezing, no coughing Hospitalist Physical - Physical exam Narrative exam: General.: Appears well, no distress, nontoxic HEENT: Moist mucous membranes, extraocular muscles intact, no lymphadenopathy Neck: supple Cardiac: S1-S2 heard Lungs: clear to auscultation bilaterally Abdomen: soft , tender in the hypogastrium, nondistended, bowel sounds positive Extremities: no edema clubbing or cyanosis Skin: no rash or lesions Neurologic: no gross focal deficits Psych: appropriate behavior, appropriate mood, corporative, judgment intact - Constitutional Vitals: Temp Pulse Resp BP Pulse Ox 98.9 F 84 18 108/71 99 12/15/17 05:25 12/15/17 05:25 12/15/17 06:35 12/15/17 05:25 12/15/17 05:25 General appearance: Present: no acute distress Results - Labs CBC & Chem 7: 12/16/17 07:26 12/16/17 07:26 Labs: Laboratory Last Values WBC 17.6 K/mm3 (4.5-11.0) H 12/14/17 05:33 RBC 4.04 M/mm3 (3.65-5.03) 12/14/17 05:33 Hgb 12.4 gm/dl (11.8-15.2) D 12/14/17 05:33 Hct 36.5 % (35.5-45.6) D 12/14/17 05:33 MCV 90 fl (84-94) 12/14/17 05:33 MCH 31 pg (28-32) 12/14/17 05:33 MCHC 34 % (32-34) 12/14/17 05:33 RDW 14.3 % (13.2-15.2) 12/14/17 05:33 Plt Count 156 K/mm3 (140-440) 12/14/17 05:33 Lymph % (Auto) 7.2 % (13.4-35.0) L 12/14/17 05:33 [place] % (Auto) 6.5 % (0.0-7.3) 12/14/17 05:33 Eos % (Auto) 0.1 % (0.0-4.3) 12/14/17 05:33 Baso % (Auto) 0.1 % (0.0-1.8) 12/14/17 05:33 Lymph # 1.3 K/mm3 (1.2-5.4) 12/14/17 05:33 [place] # 1.2 K/mm3 (0.0-0.8) H 12/14/17 05:33 Eos # 0.0 K/mm3 (0.0-0.4) 12/14/17 05:33 Baso # 0.0 K/mm3 (0.0-0.1) 12/14/17 05:33 Seg Neutrophils % 86.1 % (40.0-70.0) H 12/14/17 05:33 Seg Neutrophils # 15.2 K/mm3 (1.8-7.7) H 12/14/17 05:33 Sodium 139 mmol/L (137-145) 12/14/17 05:33 Potassium 3.5 mmol/L (3.6-5.0) L 12/14/17 05:33 Chloride 107.1 mmol/L (98-107) H 12/14/17 05:33 Carbon Dioxide 23 mmol/L (22-30) 12/14/17 05:33 Anion Gap 12 mmol/L 12/14/17 05:33 BUN 9 mg/dL (9-20) 12/14/17 05:33 Creatinine 0.7 mg/dL (0.8-1.5) L 12/14/17 05:33 Estimated GFR > 60 ml/min 12/14/17 05:33 BUN/Creatinine Ratio 13 % 12/14/17 05:33 Glucose 105 mg/dL (75-100) H 12/14/17 07:01 POC Glucose 87 (70-105) 12/14/17 06:43 Calcium 6.9 mg/dL (8.4-10.2) L D 12/14/17 05:33 Total Bilirubin 0.80 mg/dL (0.1-1.2) 12/14/17 05:33 AST 16 units/L (5-40) 12/14/17 05:33 ALT 10 units/L (7-56) 12/14/17 05:33 Alkaline Phosphatase 45 units/L (35-129) 12/14/17 05:33 Total Creatine Kinase 398 units/L (55-170) H 12/14/17 16:46 CK-MB (CK-2) 1.2 ng/mL (0.0-4.0) 12/14/17 16:46 CK-MB (CK-2) Rel Index 0.3 (0-4) 12/14/17 16:46 Troponin T < 0.010 ng/mL (0.00-0.029) 12/14/17 19:17 Total Protein 4.8 g/dL (6.3-8.2) L D 12/14/17 05:33 Albumin 2.7 g/dL (3.9-5) L 12/14/17 05:33 Albumin/Globulin Ratio 1.3 % 12/14/17 05:33 Lipase 65 units/L (13-60) H 12/13/17 15:14 Urine Color Yellow (Yellow) 12/13/17 15:04 Urine Turbidity Hazy (Clear) 12/13/17 15:04 Urine pH 5.0 (5.0-7.0) 12/13/17 15:04 Ur Specific [place] 1.029 (1.003-1.030) 12/13/17 15:04 Urine Protein 30 mg/dl mg/dL (Negative) 12/13/17 15:04 Urine Glucose (UA) Neg mg/dL (Negative) 12/13/17 15:04 Urine Ketones Tr mg/dL (Negative) 12/13/17 15:04 Urine Blood Neg (Negative) 12/13/17 15:04 Urine Nitrite Neg (Negative) 12/13/17 15:04 Urine Bilirubin Neg (Negative) 12/13/17 15:04 Urine Urobilinogen < 2.0 mg/dL (<2.0) 12/13/17 15:04 Ur Leukocyte Esterase Neg (Negative) 12/13/17 15:04 Urine WBC (Auto) 6.0 /HPF (0.0-6.0) 12/13/17 15:04 Urine RBC (Auto) 3.0 /HPF (0.0-6.0) 12/13/17 15:04 U Epithel Cells (Auto) < 1.0 /HPF (0-13.0) 12/13/17 15:04 Urine Bacteria (Auto) 1+ /HPF (Negative) 12/13/17 15:04 Amorphous Crystals Few 12/13/17 15:04 Urine Mucus 1+ /HPF 12/13/17 15:04 Urine Opiates Screen Presumptive negative 12/13/17 15:04 Urine Methadone Screen Presumptive negative 12/13/17 15:04 Acetaminophen < 5.0 ug/mL (10.0-30.0) L 12/13/17 15:14 Ur Barbiturates Screen Presumptive negative 12/13/17 15:04 Ur Phencyclidine Scrn Presumptive negative 12/13/17 15:04 Ur Amphetamines Screen Presumptive negative 12/13/17 15:04 U Benzodiazepines Scrn Presumptive negative 12/13/17 15:04 Urine Cocaine Screen Presumptive negative 12/13/17 15:04 U Marijuana (THC) Screen Presumptive positive 12/13/17 15:04 Drugs of Abuse Note Disclamer 12/13/17 15:04
[2017-12-15] MEDS: HABITROL TD SCH (09:55)
[2017-12-15] MEDS: SODIUM CHLORIDE FLUSH SYRINGE 10 ML IV SCH ×2 (09:57→23:07)
--- NOTE | 2017-12-15 11:24 | Progress Note ---
Assessment and Plan Assessment: Abnormal ECG- initially showed NSR with probable LVH and repolarization abnormalities with incomplete RBBB; normal ECG this AM Chest pain, atypical - currently resolved Duodenonal perforation s/p repair 12/13/2017 Tobacco use / marijuana use / opiate & benzo abuse - cessation encouraged Plan: Repeat ECG this AM is normal. Rissa negative for AMI. Await echo. Pending echo shows no gross abnormalities, pt may discharge home from cardiology standpoint. Follow general surgery recs. If OP cardiology follow up is desired, pt may follow up in our office with Lyndsey Archer NP ([phone]). Assessment and plan reviewed with pt and pt's significant other at bedside. The patient has been seen in conjunction with Dr. Reid who agrees with the assessment and plan of care. Subjective Date of service: 12/15/17 Principal diagnosis: abnormal ECG; duodenal perf Interval history: Pt resting comfortably in bed, no current cardiac complaints. Objective Last Vital Signs Temp 97.8 F 12/15/17 07:54 Pulse 84 12/15/17 05:25 Resp 18 12/15/17 07:54 BP 114/68 12/15/17 07:54 Pulse Ox 99 12/15/17 05:25 - Physical Examination General: Appears Well, No Apparent Distress HEENT: Positive: PERRL, Normocephaly, Mucus Membranes Moist Neck: Positive: neck supple, trachea midline Cardiac: Positive: Reg Rate and Rhythm, S1/S2 Lungs: Positive: clear to auscultation Neuro: Positive: Grossly Intact, Cranial Nerve 2-12 Intact Abdomen: Positive: Soft. Negative: Tender Skin: Positive: Clear, Other (lap surgical sites). Negative: Rash Musculoskeletal: No Fluid Collection, No Pain, Normal Range of Motion Extremities: Absent: edema - Labs and Meds Cardiac Enzymes 12/14/17 Range/Units 16:46 CK-MB (CK-2) 1.2 (0.0-4.0) ng/mL - Imaging and Cardiology EKG: report reviewed, image reviewed Echo: pending - Telemetry EKG Rhythm: Sinus Rhythm - EKG Sinus rhythms and dysrhythmias: sinus rhythm AV and intraventricular conduction: right bundle branch block (incomplete) Chamber hypertrophy or enlargement: left ventricular hypertro Repolarization changes or abnormalities: repolarization abn secondary to ventricular hypertrophy
--- NOTE | 2017-12-15 11:29 | Progress Note ---
Assessment and Plan - Patient Problems (1) Duodenal ulcer perforation Current Visit: Yes Status: Acute Plan to address problem: Pt stable. s/p dx lap, suture closure of duodenal perforation, Omental patch, peritoneal lavage - 12/13/17 - POD#2. Pt has been ambulating. Did not receive IS yesterday. I went and got one for him. Instructed him on use. As expected, volume was low ~500cc. mild temp is probably atelectasis as he looks very good. Encouraged IS use. - Keep NPO for now - UGI today to assess for leaks. If none, will start clears today - Cont Abx until WBC normal and afebrile for 48hrs. I think the current leukocytosis is reactive in nature. - Ambulate - IS - Labs in AM. - monitor closely (2) Dehydration Current Visit: Yes Status: Resolved Subjective Date of service: 12/15/17 Patient Reports: Positive: no new complaints, feels better, no flatus, no bowel movement, fever (99 this AM. ), other (frustrated that they are getting conflicting info from nurses. Showered yesterday as nurse said it was ok. Burping now. ). Negative: nausea, vomiting Objective Vital Signs - 12hr 12/15/17 12/15/17 12/15/17 01:39 01:44 01:45 Temperature 98.9 F Pulse Rate 79 70 82 Respiratory 20 Rate Blood Pressure Blood Pressure 113/60 [Left] O2 Sat by Pulse 100 98 99 Oximetry 12/15/17 12/15/17 12/15/17 05:25 05:53 06:35 Temperature 98.9 F Pulse Rate 84 Respiratory 17 18 18 Rate Blood Pressure 108/71 Blood Pressure [Left] O2 Sat by Pulse 99 Oximetry 12/15/17 12/15/17 07:35 07:54 Temperature 97.8 F Pulse Rate Respiratory 18 18 Rate Blood Pressure 114/68 Blood Pressure [Left] O2 Sat by Pulse Oximetry - General physical appearance no distress, no pain, other (Looks good sitting up in chair. Does not appear ill. ) - Eyes PERRL, normal occular movement - Respiratory normal expansion, normal respiratory effort - Abdomen soft, tender (mild - more sore in lower abdomen. ), bowel sounds hypoactive ( beginning to improve), not distended, not guarding, not rigid, wound (C/D/I. minimal swelling at umbilical incision site. ) - Integumentary no rash, no growths, no abnormal pigmentation - Psychiatric oriented to time, oriented to person, oriented to place, speech is normal, memory intact - Labs 12/14/17 05:33 12/14/17 07:01
--- NOTE | 2017-12-15 13:54 | Fluoroscopy Report ---
Upper GI series History: Abdominal pain, perforated duodenal ulcer surgically corrected 2 days ago. Findings: A modified upper GI was performed with Gastrografin. 26 fluoroscopic images were obtained. The esophagus, GE junction and stomach are unremarkable. Mucosal folds within the duodenum are slightly thickened and edematous. There is suggestion of a small ulcer in the posterior duodenal bulb which presumably represents the surgically repaired ulcer in the patient's history. There is no evidence for extravasation of contrast agent. Impression: Status post perforated duodenal ulcer repair. No evidence for leak.
--- NOTE | 2017-12-15 16:19 | Event Note ---
Date: 12/15/17 Gave details of UGI report. Ordered clears. Advised to drink slowly. If tolerated, will advance to soft diet tomorrow. Once WBC normal and afebrile x 48hrs, may stop Abx.
[2017-12-15] MEDS: LOVENOX SUB-Q SCH (21:38)
[2017-12-15] MEDS ORDERED: PROTONIX IV SCH (22:00)
[2017-12-16] MEDS: ZOSYN/NS 4.5GM/100ML 4.5 GM/100 ML VIAL IV SCH (05:39)
[2017-12-16 07:57] LABS: Basophils % (Auto) 0.2 % (0.0-1.8); Eosinophils # (Auto) 0.4 K/mm3 (0.0-0.4); Eosinophils % (Auto) 3.6 % (0.0-4.3); Hematocrit 39.5 % (35.5-45.6); Lymphocytes % (Auto) 9.7 % (13.4-35.0); Mean Corpuscular HGB Conc 33 % (32-34); Mean Corpuscular Hemoglobin 30 pg (28-32); Mean Corpuscular Volume 91 fl (84-94); Monocytes # (Auto) 1.3 K/mm3 (0.0-0.8); Monocytes % (Auto) 12.1 % (0.0-7.3); Platelet Count 194 K/mm3 (140-440); Red Blood Count 4.34 M/mm3 (3.65-5.03); Red Cell Distribution Width 14.5 % (13.2-15.2)
[2017-12-16] MEDS: MORPHINE IV PRN ×3 (07:59→23:42)
[2017-12-16 08:05] LABS: BUN/Creatinine Ratio 8; Blood Urea Nitrogen 7 mg/dL (9-20); Calcium 8.9 mg/dL (8.4-10.2); Hemolysis Index 4
--- NOTE | 2017-12-16 08:18 | Progress Note ---
Assessment and Plan - Patient Problems (1) Duodenal ulcer perforation Current Visit: Yes Status: Acute Plan to address problem: Pt stable. s/p dx lap, suture closure of duodenal perforation, Omental patch, peritoneal lavage - 12/13/17 - POD#3. Doing well. If diet tolerated today and no fevers, may d/c home tomorow. No need for Abx at home. - Mech soft diet today - should continue for 1 week - Stop IVF - Cont Abx until WBC normal and afebrile for 48hrs. Leukocytosis has resolved. No need for Abx at home. - Ambulate - IS - Possible d/c home tomorow. Off from work for 1 week. - f/u with me end of next week - december shower; pat dry wounds - no heavy lifting or strenuous activity. Subjective Date of service: 12/16/17 Patient Reports: Positive: feels better, tolerating liquids well, bowel movement , afebrile. Negative: nausea, vomiting Objective Vital Signs - 12hr 12/15/17 12/15/17 12/15/17 22:00 23:00 23:34 Temperature 98.3 F Pulse Rate 72 Pulse Rate [ 85 Left Radial] Respiratory 17 17 20 Rate Respiratory 17 Rate [abd] Blood Pressure 125/79 O2 Sat by Pulse 98 98 Oximetry 12/16/17 04:00 Temperature 98.5 F Pulse Rate 71 Pulse Rate [ Left Radial] Respiratory 20 Rate Respiratory Rate [abd] Blood Pressure 124/86 O2 Sat by Pulse 100 Oximetry - General physical appearance no distress, no pain, other (looks great) - Eyes normal occular movement - Respiratory normal expansion, normal respiratory effort - Abdomen soft, tender (much less today - mainly in epigastric area and suprapubic area), bowel sounds hypoactive, not guarding, not rigid, wound (C/D/I) - Integumentary no rash, no growths, no abnormal pigmentation - Psychiatric oriented to time, oriented to person, oriented to place, speech is normal, memory intact - Labs 12/16/17 07:26 12/16/17 07:26 Diabetes panel 12/16/17 Range/Units 07:26 Sodium 140 (137-145) mmol/L Potassium 4.1 (3.6-5.0) mmol/L Chloride 100.3 (98-107) mmol/L Carbon Dioxide 28 (22-30) mmol/L BUN 7 L (9-20) mg/dL Creatinine 0.9 (0.8-1.5) mg/dL Glucose 76 (75-100) mg/dL Calcium 8.9 D (8.4-10.2) mg/dL Calcium panel 12/16/17 Range/Units 07:26 Calcium 8.9 D (8.4-10.2) mg/dL Pituitary panel 12/16/17 Range/Units 07:26 Sodium 140 (137-145) mmol/L Potassium 4.1 (3.6-5.0) mmol/L Chloride 100.3 (98-107) mmol/L Carbon Dioxide 28 (22-30) mmol/L BUN 7 L (9-20) mg/dL Creatinine 0.9 (0.8-1.5) mg/dL Glucose 76 (75-100) mg/dL Calcium 8.9 D (8.4-10.2) mg/dL Adrenal panel 12/16/17 Range/Units 07:26 Sodium 140 (137-145) mmol/L Potassium 4.1 (3.6-5.0) mmol/L Chloride 100.3 (98-107) mmol/L Carbon Dioxide 28 (22-30) mmol/L BUN 7 L (9-20) mg/dL Creatinine 0.9 (0.8-1.5) mg/dL Glucose 76 (75-100) mg/dL Calcium 8.9 D (8.4-10.2) mg/dL
[2017-12-16] MEDS: PEPCID PO SCH ×2 (10:07→22:50)
[2017-12-16] MEDS: HABITROL TD SCH (10:07)
[2017-12-16] MEDS: SODIUM CHLORIDE FLUSH SYRINGE 10 ML IV SCH (10:08)
--- NOTE | 2017-12-16 12:05 | Progress Note ---
Assessment and Plan Assessment and plan: bowel perforation; s/p dx lap, suture closure of duodenal perforation, Omental patch, peritoneal lavage - 12/13/17 -Upper GI series did not show any leakages. -improving, advance diet PUD; continue pepcid sepsis due to peritonitis, continue IV antibiotics; descalate from zosyn to unasyn, will be dc on oral augmentin to complete 10 day nicotine dependence, nicotine patch dvt ppx, ambulation History Interval history: Review of systems Constitutional: No fevers, no malaise, no joint pains CVS: No chest pain, no orthopnea, no dyspnea on exertion, no pedal edema GI: No abdominal pain, no diarrhea, no vomiting, no constipation Respiratory: No shortness of breath, no wheezing, no coughing Hospitalist Physical - Physical exam Narrative exam: General.: Appears well, no distress, nontoxic HEENT: Moist mucous membranes, extraocular muscles intact, no lymphadenopathy Neck: supple Cardiac: S1-S2 heard Lungs: clear to auscultation bilaterally Abdomen: soft , tender in the hypogastrium, nondistended, bowel sounds positive Extremities: no edema clubbing or cyanosis Skin: no rash or lesions Neurologic: no gross focal deficits Psych: appropriate behavior, appropriate mood, corporative, judgment intact - Constitutional Vitals: Temp Pulse Resp BP Pulse Ox 97.6 F 64 18 116/73 100 12/16/17 08:21 12/16/17 08:21 12/16/17 08:29 12/16/17 08:21 12/16/17 08:21 General appearance: Present: no acute distress Results - Labs CBC & Chem 7: 12/16/17 07:26 12/16/17 07:26 Labs: Laboratory Last Values WBC 10.5 K/mm3 (4.5-11.0) 12/16/17 07:26 RBC 4.34 M/mm3 (3.65-5.03) 12/16/17 07:26 Hgb 13.0 gm/dl (11.8-15.2) 12/16/17 07:26 Hct 39.5 % (35.5-45.6) 12/16/17 07:26 MCV 91 fl (84-94) 12/16/17 07:26 MCH 30 pg (28-32) 12/16/17 07:26 MCHC 33 % (32-34) 12/16/17 07:26 RDW 14.5 % (13.2-15.2) 12/16/17 07:26 Plt Count 194 K/mm3 (140-440) 12/16/17 07:26 Lymph % (Auto) 9.7 % (13.4-35.0) L 12/16/17 07:26 Payne % (Auto) 12.1 % (0.0-7.3) H 12/16/17 07:26 Eos % (Auto) 3.6 % (0.0-4.3) 12/16/17 07:26 Baso % (Auto) 0.2 % (0.0-1.8) 12/16/17 07:26 Lymph # 1.0 K/mm3 (1.2-5.4) L 12/16/17 07:26 Payne # 1.3 K/mm3 (0.0-0.8) H 12/16/17 07:26 Eos # 0.4 K/mm3 (0.0-0.4) 12/16/17 07:26 Baso # 0.0 K/mm3 (0.0-0.1) 12/16/17 07:26 Seg Neutrophils % 74.4 % (40.0-70.0) H 12/16/17 07:26 Seg Neutrophils # 7.8 K/mm3 (1.8-7.7) H 12/16/17 07:26 Sodium 140 mmol/L (137-145) 12/16/17 07:26 Potassium 4.1 mmol/L (3.6-5.0) 12/16/17 07:26 Chloride 100.3 mmol/L (98-107) 12/16/17 07:26 Carbon Dioxide 28 mmol/L (22-30) 12/16/17 07:26 Anion Gap 16 mmol/L 12/16/17 07:26 BUN 7 mg/dL (9-20) L 12/16/17 07:26 Creatinine 0.9 mg/dL (0.8-1.5) 12/16/17 07:26 Estimated GFR > 60 ml/min 12/16/17 07:26 BUN/Creatinine Ratio 8 % 12/16/17 07:26 Glucose 76 mg/dL (75-100) 12/16/17 07:26 POC Glucose 87 (70-105) 12/14/17 06:43 Calcium 8.9 mg/dL (8.4-10.2) D 12/16/17 07:26 Total Bilirubin 0.80 mg/dL (0.1-1.2) 12/14/17 05:33 AST 16 units/L (5-40) 12/14/17 05:33 ALT 10 units/L (7-56) 12/14/17 05:33 Alkaline Phosphatase 45 units/L (35-129) 12/14/17 05:33 Total Creatine Kinase 398 units/L (55-170) H 12/14/17 16:46 CK-MB (CK-2) 1.2 ng/mL (0.0-4.0) 12/14/17 16:46 CK-MB (CK-2) Rel Index 0.3 (0-4) 12/14/17 16:46 Troponin T < 0.010 ng/mL (0.00-0.029) 12/14/17 19:17 Total Protein 4.8 g/dL (6.3-8.2) L D 12/14/17 05:33 Albumin 2.7 g/dL (3.9-5) L 12/14/17 05:33 Albumin/Globulin Ratio 1.3 % 12/14/17 05:33 Lipase 65 units/L (13-60) H 12/13/17 15:14 Urine Color Yellow (Yellow) 12/13/17 15:04 Urine Turbidity Hazy (Clear) 12/13/17 15:04 Urine pH 5.0 (5.0-7.0) 12/13/17 15:04 Ur Specific [place] 1.029 (1.003-1.030) 12/13/17 15:04 Urine Protein 30 mg/dl mg/dL (Negative) 12/13/17 15:04 Urine Glucose (UA) Neg mg/dL (Negative) 12/13/17 15:04 Urine Ketones Tr mg/dL (Negative) 12/13/17 15:04 Urine Blood Neg (Negative) 12/13/17 15:04 Urine Nitrite Neg (Negative) 12/13/17 15:04 Urine Bilirubin Neg (Negative) 12/13/17 15:04 Urine Urobilinogen < 2.0 mg/dL (<2.0) 12/13/17 15:04 Ur Leukocyte Esterase Neg (Negative) 12/13/17 15:04 Urine WBC (Auto) 6.0 /HPF (0.0-6.0) 12/13/17 15:04 Urine RBC (Auto) 3.0 /HPF (0.0-6.0) 12/13/17 15:04 U Epithel Cells (Auto) < 1.0 /HPF (0-13.0) 12/13/17 15:04 Urine Bacteria (Auto) 1+ /HPF (Negative) 12/13/17 15:04 Amorphous Crystals Few 12/13/17 15:04 Urine Mucus 1+ /HPF 12/13/17 15:04 Urine Opiates Screen Presumptive negative 12/13/17 15:04 Urine Methadone Screen Presumptive negative 12/13/17 15:04 Acetaminophen < 5.0 ug/mL (10.0-30.0) L 12/13/17 15:14 Ur Barbiturates Screen Presumptive negative 12/13/17 15:04 Ur Phencyclidine Scrn Presumptive negative 12/13/17 15:04 Ur Amphetamines Screen Presumptive negative 12/13/17 15:04 U Benzodiazepines Scrn Presumptive negative 12/13/17 15:04 Urine Cocaine Screen Presumptive negative 12/13/17 15:04 U Marijuana (THC) Screen Presumptive positive 12/13/17 15:04 Drugs of Abuse Note Disclamer 12/13/17 15:04
[2017-12-16] MEDS: ULTRAM PO PRN (12:57)
[2017-12-16] MEDS: UNASYN/NS 3 GM/100 ML 3 GM/100 ML BAG IV SCH ×2 (18:41→23:43)
[2017-12-16] MEDS: LOVENOX SUB-Q SCH (22:48)
[2017-12-17] MEDS: ULTRAM PO PRN (08:18)
[2017-12-17] MEDS: SODIUM CHLORIDE FLUSH SYRINGE 10 ML IV SCH (09:52)
[2017-12-17] MEDS: HABITROL TD SCH (09:53)
[2017-12-17] MEDS: PEPCID PO SCH (09:53)
--- NOTE | 2017-12-17 10:21 | Discharge Summary ---
Providers - Providers Date of Admission: 12/13/17 19:36 Attending physician: BASHIR MEHTA MD 12/13/17 19:36 Consult to Physician [CONS] Routine Comment: Consulting Provider: IRIS WINSTON Physician Instructions: Reason For Exam: perforation abdomen Primary care physician: MORGUE TECHNICIAN Hospitalization Condition: Stable Procedures: suture closure of duodenal operation with omental patch and peritoneal lavage Hospital course: 27-year-old man who presented with abdominal pain. He was found to have viscous perforation. He had a duodenal perforation due to a chronic duodenal ulcer. He underwent diagnostic laparoscopy, suture closure of duodenal operation with omental patch and peritoneal lavage. He received IV antibiotics. The patient's then went to have a upper GI series that was negative for any leakages. His diet was advanced he tolerated it well. He was counseled on tobacco cessation. He'll complete his antibiotics as an outpatient with pills. Next Discharge diagnoses Duodenal perforation PUD; sepsis due to peritonitis, nicotine dependence, Disposition: DC- TO HOME OR SELFCARE Time spent for discharge: 33 minutes Core Measure Documentation - Palliative Care Palliative Care/ Comfort Measures: Not Applicable - Core Measures Any of the following diagnoses?: none Exam - Constitutional Vitals: Temp Pulse Resp BP Pulse Ox 98.4 F 61 18 116/71 98 12/16/17 16:35 12/16/17 16:35 12/17/17 08:18 12/16/17 16:35 12/16/17 22:00 General appearance: Present: no acute distress, well-nourished - EENT Eyes: Present: PERRL ENT: hearing intact, clear oral mucosa - Neck Neck: Present: supple, normal ROM - Respiratory Respiratory effort: normal Respiratory: bilateral: CTA - Cardiovascular Heart Sounds: Present: S1 & S2. Absent: rub, click - Extremities Extremities: pulses symmetrical, No edema Peripheral Pulses: within normal limits - Abdominal General gastrointestinal: Present: soft, non-tender, non-distended, normal bowel sounds Male genitourinary: Present: normal - Integumentary Integumentary: Present: clear, warm, dry - Musculoskeletal Musculoskeletal: gait normal, strength equal bilaterally - Psychiatric Psychiatric: appropriate mood/affect, intact judgment & insight - Neurologic Neurologic: CNII-XII intact, moves all extremities Plan Follow up with: PRIMARY CAREMD [Primary Care Provider] - 3-5 Days Forms: Work/School Release Form Prescriptions: Amoxicillin/Potassium Clav [Augmentin 500-125 Tablet] 1 each PO BID #12 tablet Nicotine [Habitrol] 21 mg TD QDAY #30 patch Pantoprazole [Protonix TAB] 40 mg PO QDAY #30 tablet traMADol [Ultram 50 MG tab] 25 mg PO Q4H PRN #20 tablet PRN Reason: Pain, Moderate (4-6)
[2017-12-17 10:51] VITALS: BP 134/78
[2017-12-17] MEDS: UNASYN/NS 3 GM/100 ML 3 GM/100 ML BAG IV SCH (12:04)
--- NOTE | 2017-12-17 16:47 | Progress Note ---
Assessment and Plan - Patient Problems (1) Duodenal ulcer perforation Current Visit: Yes Status: Acute Plan to address problem: Pt stable. s/p dx lap, suture closure of duodenal perforation, Omental patch, peritoneal lavage - 12/13/17 - POD#4. Doing well. Tolerated soft diet. May d/c home today. No need for Abx at home. - [facility] soft diet today - should continue for 1 week - d/c home today - Off from work for 1 week. - f/u with me end of next week - december shower; pat dry wounds - no heavy lifting or strenuous activity. Subjective Date of service: 12/17/17 Patient Reports: Positive: no new complaints, feels better, tolerating a regular diet. Negative: nausea, vomiting Objective Vital Signs - 12hr 12/17/17 08:18 Temperature 98.8 F Pulse Rate 60 Respiratory 18 Rate Blood Pressure 134/78 [Left] O2 Sat by Pulse 100 Oximetry - General physical appearance no distress, no pain, other (moving around the room easily) - Eyes normal occular movement - Respiratory normal expansion, normal respiratory effort - Abdomen soft, not distended - Labs 12/16/17 07:26 12/16/17 07:26
== END 2017-12-17 12:14 | disposition home or self-care (01) | DRG 853 ==
LOC: ED 13:24 → 3A 19:36 → 3B-SURG 20:45
PROVIDERS: ADMIT Internal Medicine; ATTEND Internal Medicine
PROC: 0DU947Z Supplement Duodenum with Autologous Tissue Substitute, Percutaneous Endoscopic Approach (ICD-10-PCS; principal; 2017-12-13)
PROC: 0DQ94ZZ Repair Duodenum, Percutaneous Endoscopic Approach (ICD-10-PCS; 2017-12-13)
PROC: 0WJP4ZZ Inspection of Gastrointestinal Tract, Percutaneous Endoscopic Approach (ICD-10-PCS; 2017-12-13)
DX: A41.9 Sepsis, unspecified organism (principal); K26.5 Chronic or unspecified duodenal ulcer with perforation; K65.9 Peritonitis, unspecified; F17.210 Nicotine dependence, cigarettes, uncomplicated; F12.10 Cannabis abuse, uncomplicated; F10.10 Alcohol abuse, uncomplicated; E86.0 Dehydration; I45.10 Unspecified right bundle-branch block; Z71.6 Tobacco abuse counseling
CPT/HCPCS: 36415; 74176; 74247; 80048; 80053; 80307; 80320; 81001; 82550; 82553; 82947; 82962; 83690; 84484; 85025; 93005; 93010; 93306; 99406; C9113; G0480; J0295; J1170; J1644; J1650; J2270; J2405; J2543; J2704; J3010; J7030; J7042; J7120; Q0162; Q9963

== ENCOUNTER 2019-01-05 15:24 | Emergency (ER) | payer OTHER ==
[2019-01-05] MEDS ORDERED: NACL 0.9% 1000 ML 1,000 ML IV ONE (16:46)
[2019-01-05] MEDS ORDERED: ZOFRAN IV ONE (16:46)
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
[2019-01-05 17:22] LABS: Basophils % (Auto) 0.4 % (0.0-1.8); Eosinophils # (Auto) 0.3 K/mm3 (0.0-0.4); Hematocrit 40.5 % (35.5-45.6); Hemoglobin 13.4 gm/dl (11.8-15.2); Lymphocytes % (Auto) 9.5 % (13.4-35.0); Mean Corpuscular HGB Conc 33 % (32-34); Mean Corpuscular Volume 94 fl (84-94); Monocytes # (Auto) 1.1 K/mm3 (0.0-0.8); Monocytes % (Auto) 9.9 % (0.0-7.3); Platelet Count 140 K/mm3 (140-440); Red Blood Count 4.33 M/mm3 (3.65-5.03)
[2019-01-05 17:42] LABS: Albumin 4.6 g/dL (3.9-5); Bilirubin,Direct 0.4 mg/dL (0-0.2)
[2019-01-05 18:26] LABS: BUN/Creatinine Ratio 16; Blood Urea Nitrogen 13 mg/dL (9-20); Calcium 9.3 mg/dL (8.4-10.2); Hemolysis Index 4
[2019-01-05] MEDS ORDERED: PEPCID IV ONE (18:56)
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
--- NOTE | 2019-01-05 20:24 | Cat Scan Report ---
PROCEDURE: CT ABDOMEN PELVIS W CON TECHNIQUE: Computerized axial tomography of the abdomen and pelvis was performed after the IV inject ion of iodinated nonionic contrast. CT DOSE LENGTH PRODUCT: 1200.3 mGycm HISTORY: ABD PAIN COMPARISONS: 12/13/2017 . FINDINGS: Visualized lower thorax: No significant abnormality. Liver: Normal size and attenuation. Spleen: Normal size and attenuation. Gallbladder and biliary system: Normal. Pancreas: Normal. Adrenals: Normal. Kidneys: Normal. GI tract: There is no bowel obstruction, colitis or enteritis. The appendix is normal. . Lymph nodes and mesentery: Normal. Vasculature: Normal.. Bladder: Normal. Reproductive organs: Normal. Peritoneum: There is no ascites or free air, abscess or adenopathy.. Musculoskeletal structures: No significant abnormality. IMPRESSION: Normal examination of the abdomen and pelvis . This document is electronically signed by Levi Costa MD., Jan 05 2019 09:22:12 PM ET
[2019-01-05 20:55] LABS: Bilirubin,Urine NEG (Negative); Blood,Urine NEG (Negative); Color,Urine Yellow (Yellow); Protein,Urine <15 mg/dL mg/dL (Negative); Urobilinogen,Urine < 2.0 mg/dL (<2.0)
[2019-01-05 21:03] LABS: RBC,Urine < 1.0 /HPF (0.0-6.0)
[2019-01-05 21:11] LABS: Amphetamine Screen,Urine PRESUMPTIVE NEGATIVE; Benzodiazepines Screen,Urine PRESUMPTIVE NEGATIVE; Cocaine Screen,Urine PRESUMPTIVE NEGATIVE; Methadone Screen,Urine PRESUMPTIVE NEGATIVE; Opiate Screen,Urine PRESUMPTIVE NEGATIVE
[2019-01-05 21:38] LABS: Cannabinoid Screen,Urine PRESUMPTIVE POSITIVE
[2019-01-05 21:45] VITALS: BP 120/81
== END 2019-01-05 21:47 | disposition home or self-care (01) ==
LOC: ED 15:24
DX: R10.13 Epigastric pain (principal); R19.7 Diarrhea, unspecified
CPT/HCPCS: 36415; 74177; 80048; 80076; 80307; 81001; 83690; 85025; 96361; 99284; J7030; Q9967; 96374